=== PATIENT | male | born 1960 | race Caucasian/White ===

== ENCOUNTER 2018-10-04 07:37 | Inpatient (IN) | payer OTHER ==
[2018-10-04 08:32] VITALS: BMI 32.1
[2018-10-04] MEDS ORDERED: MIDAZOLAM HCL 2 MG/2 ML SINGLE DOSE VIAL ONE ×3 (09:20→11:06)
[2018-10-04] MEDS ORDERED: BUPIVACAINE LIPOSOME/PF (EXPAREL) 266 MG/20 ML VIAL ONE ×2 (09:20→09:26)
[2018-10-04] MEDS ORDERED: VANCOMYCIN 1,000 MG VIAL (RESTRICTED TO ID ONLY) ONE (10:45)
[2018-10-04] MEDS ORDERED: ROPIVICAINE 0.2%/MORPH PF/KETOROLAC - 51ML DISP.SYRINGE IA ONE ×3 (10:45→12:37)
[2018-10-04] MEDS ORDERED: CELECOXIB 200 MG CAPSULE PO ONE (11:04)
[2018-10-04] MEDS ORDERED: CEFAZOLIN 2 GM in DEXTROSE 5%-WATER - 50 ML IVPB ONE (11:04)
[2018-10-04] MEDS ORDERED: TRANEXAMIC ACID 1000 MG/10 ML VIAL IVPUSH ONE (11:04)
[2018-10-04] MEDS ORDERED: PROPOFOL 20 ML ONE ×2 (11:05→12:31)
[2018-10-04] MEDS ORDERED: ceFAZolin SODIUM 1 GM VIAL ONE (11:09)
[2018-10-04] MEDS ORDERED: TRANEXAMIC ACID 1000 MG/10 ML VIAL ONE ×2 (11:09→13:03)
[2018-10-04] MEDS ORDERED: VANCOMYCIN 1,000 MG VIAL (RESTRICTED TO ID ONLY) IVPB ONE (12:40)
[2018-10-04] MEDS ORDERED: ONDANSETRON 4 MG/2 ML VIAL ONE (13:07)
[2018-10-04] MEDS ORDERED: ACETAMINOPHEN 1000 MG/100 ML VIAL (NON FORMULARY) IVPB ONE ×2 (13:27→14:00)
[2018-10-04] MEDS ORDERED: ONDANSETRON 4 MG/2 ML VIAL IVPUSH PRN ×2 (13:27→13:36)
[2018-10-04] MEDS ORDERED: oxyCODONE HCL 5 MG TABLET PO PRN ×2 (13:27)
[2018-10-04] MEDS ORDERED: LACTATED RINGERS SOLUTION 1,000 ML IV SCH ×2 (13:30→13:45)
[2018-10-04] MEDS ORDERED: MAG HYDROX/AL HYDROX/SIMETH 30 ML UNIT-DOSE CUP PO PRN (13:36)
--- NOTE | 2018-10-04 13:48 | OP ---
Operative Note - Note: Operative Date: 10/04/18 Pre-Operative Diagnosis: Left knee osteoarthritis Operation: Left knee total knee arthroplasty/makoplasty Surgeon: Gamal Lee Assistant Professor Of Biochemistry: Jarret Santana Anesthesiologist/[employer]: Zulma Cuellar Anesthesia: General, Spinal Operative Report Dictated: Yes
--- NOTE | 2018-10-04 13:49 | SURG ---
Surgery [employer] Counselor Note [employer] Counselor: Jarret Santana PA-C Date of Service: 10/04/18 Diagnosis: Left knee osteoarthritis Procedure: Left total knee arthroplasty/makoplasty I was present for the entirety of the operative procedure. For further detail, please refer to operative report. Visit type - Case Type Case Type: Scheduled - Emergency Emergency Visit: No - New patient This patient is new to me today: Yes Date on this admission: 10/04/18
--- NOTE | 2018-10-04 15:02 | CONSULT ---
Consultation: REQUESTING PROVIDER: Dr. Gamal Lee CONSULT REQUEST: We have been asked to medically follow this patient post- operatively. HISTORY OF PRESENT ILLNESS: 58 year-old male with a PMH significant for HTN, HLD, pituatary microadenoma, and left knee OA s/p left total knee arthroplasty/makoplasty. REVIEW OF SYSTEMS: CONSTITUTIONAL: Absent: fever, chills, diaphoresis, generalized weakness, malaise, loss of appetite, weight change HEENT: Absent: rhinorrhea, nasal congestion, throat pain, throat swelling, difficulty swallowing, mouth swelling, ear pain, eye pain, visual changes CARDIOVASCULAR: Absent: chest pain, syncope, palpitations, irregular heart rate, lightheadedness , peripheral edema RESPIRATORY: Absent: cough, shortness of breath, dyspnea with exertion, orthopnea, wheezing, stridor, hemoptysis GASTROINTESTINAL: Absent: abdominal pain, abdominal distension, nausea, vomiting, diarrhea, constipation, melena, hematochezia GENITOURINARY: Absent: dysuria, frequency, urgency, hesitancy, hematuria, flank pain, genital pain MUSCULOSKELETAL: +post-operative pain left knee Absent: myalgia, arthralgia, joint swelling, back pain, neck pain SKIN: Absent: rash, itching, pallor HEMATOLOGIC/IMMUNOLOGIC: Absent: easy bleeding, easy bruising, lymphadenopathy, frequent infections ENDOCRINE: Absent: unexplained weight gain, unexplained weight loss, heat intolerance, cold intolerance NEUROLOGIC: Absent: headache, focal weakness or paresthesias, dizziness, unsteady gait, seizure, mental status changes, bladder or bowel incontinence PSYCHIATRIC: Absent: anxiety, depression, suicidal or homicidal ideation, hallucinations. PHYSICAL EXAMINATION Vital Signs - 24 hr 10/04/18 10/04/18 10/04/18 07:54 08:23 08:28 Temperature 99 F Pulse Rate 62 Respiratory 18 18 Rate Blood Pressure 132/80 O2 Sat by Pulse 99 Oximetry (%) GENERAL: Awake, alert, and fully oriented, in no acute distress. HEAD: Normal with no signs of trauma. EYES: Pupils equal, round and reactive to light, sclera anicteric, conjunctiva clear. No lid lag. LUNGS: Breath sounds equal, clear to auscultation bilaterally. No wheezes, and no crackles. No accessory muscle use. HEART: Regular rate and rhythm, S1 and S2 ABDOMEN: Soft, nontender, not distended UPPER EXTREMITIES: 2+ pulses, warm, well-perfused. No cyanosis. No clubbing. Cap refill <2 seconds. No peripheral edema. LOWER EXTREMITIES: LEFT: SCDs, TEDs, HAMMAD wrappings c/d/i; +flexion/+extension toes; hemovac drain sanguinous fluid NEUROLOGICAL: Cranial nerves II-XII intact. Normal speech. Active Medications Generic Name Dose Route Start Last Admin Trade Name Freq PRN Reason Stop Dose Admin Al Hydroxide/Mg Hydroxide 30 ml 10/04/18 13:36 Mylanta Oral Suspension - PO Q4H PRN DYSPEPSIA Amlodipine Besylate 10 mg 10/05/18 10:00 Norvasc - PO DAILY [facility] Aspirin 325 mg 10/04/18 22:00 Asa - PO BID [facility] Fentanyl 50 mcg 10/04/18 13:27 Sublimaze Injection - IVPUSH [id number] PRN PAIN-PACU ORDER X 4 DOSES ONLY Gabapentin 300 mg 10/04/18 22:00 Neurontin - PO BID [facility] Hydrochlorothiazide 12.5 mg 10/05/18 10:00 Hctz - PO DAILY [facility] Cefazolin Sodium/Dextrose 2 gm in 50 mls @ 100 mls/hr 10/04/18 18:00 Ancef 2 Gm Premixed Ivpb - IVPB 10/05/18 02:29 Q8H-IV JEVON Lactated Ringer's 1,000 mls @ 125 mls/hr 10/04/18 13:45 Lactated Ringers Solution IV 10/05/18 06:00 ASDIR [facility] Multivitamins/Minerals/Vitamin C 1 tab 10/05/18 10:00 Tab-A-Vit - PO DAILY [facility] Ondansetron HCl 4 mg 10/04/18 13:36 Zofran Injection IVPUSH Q6H PRN NAUSEA Oxycodone HCl 10 mg 10/04/18 13:27 Roxicodone - PO 10/05/18 13:26 Q4H PRN PAIN LEVEL 6-10 Oxycodone HCl 10 mg 10/04/18 13:27 Roxicodone - PO Q3H PRN PAIN LEVEL 6-10 Oxycodone HCl 5 mg 10/04/18 13:27 Roxicodone - PO Q3H PRN PAIN LEVEL 1-5 Oxycodone HCl 10 mg 10/04/18 22:00 Oxycontin - PO 10/07/18 13:29 BID JEVON Pantoprazole Sodium 40 mg 10/05/18 10:00 Protonix - PO DAILY JEVON Rosuvastatin Calcium 10 mg 10/04/18 22:00 Crestor - PO HS JEVON Senna/Docusate Sodium 2 tablet 10/04/18 22:00 Pericolace - PO BID JEVON Valsartan 320 mg 10/05/18 10:00 Diovan - PO DAILY JEVON ASSESSMENT/PLAN: 58 year-old male with a PMH significant for HTN, HLD, pituatary microadenoma, and left knee OA s/p left total knee arthroplasty/makoplasty. Left total knee arthroplasty/makoplasty 10/04/18 --POD #0 --pain management per surgery --perioperative antibiotics --Hemovac drain, monitor output --ASA 325mg BID --bowel regimen --incentive spirometry --physical therapy Hypertension --continue amlodipine, valsartan, HCTZ Hyperlipidemia --continue Crestor Pituatary microadenoma --stable FEN Fluids: LR@125mL/hr Electrolytes: replete as indicated Nutrition: regular diet DVT prophylaxis: ASA, SCDs, TEDs, oob, ambulation Dispo: We will continue to follow the patient. Thank you for this consultative opportunity. Visit type - Emergency Visit Emergency Visit: No - New Patient This patient is new to me today: Yes Date on this admission: 10/04/18 - Critical Care Critical Care patient: No
[2018-10-04] MEDS: oxyCODONE HCL 5 MG TABLET PO PRN ×3 (16:30→21:58)
[2018-10-04] MEDS: CEFAZOLIN 2 GM/D5W 2 GM/50 ML ML IVPB SCH (18:08)
[2018-10-04] MEDS: GABAPENTIN 300 MG CAPSULE (FP) PO SCH (21:52)
[2018-10-04] MEDS: oxyCODONE HCL 10 MG SUSTAINED ACTING TABLET PO SCH (21:52)
[2018-10-04] MEDS: SENNOSIDES/DOCUSATE COMBO (SENNA PLUS) TABLET (UD) PO SCH (21:53)
[2018-10-04] MEDS: ROSUVASTATIN CA 10 MG TABLET (FP) PO SCH (21:53)
[2018-10-04] MEDS: ASPIRIN 325 MG TABLET PO SCH (21:53)
[2018-10-05] MEDS: CEFAZOLIN 2 GM/D5W 2 GM/50 ML ML IVPB SCH (01:00)
[2018-10-05] MEDS: oxyCODONE HCL 5 MG TABLET PO PRN ×2 (04:40→08:45)
[2018-10-05] MEDS: oxyCODONE HCL 10 MG SUSTAINED ACTING TABLET PO SCH (09:00)
[2018-10-05 09:10] LABS: HEMATOCRIT 42.7 % (35.4-49); MCH 28.8 pg (25.7-33.7); MCHC 32.8 g/dl (32.0-35.9); MEAN CELL VOLUME 87.9 fl (80-96); MEAN PLT VOLUME 10.1 fl (7.5-11.1); PLATELET COUNT 197 K/MM3 (134-434); RBC 4.86 M/mm3 (4.00-5.60); RDW 12.2 % (11.9-15.9); WHITE BLOOD COUNT 10.9 K/mm3 (4.0-10.8)
[2018-10-05 09:14] LABS: ANION GAP 10 MMOL/L (8-16); BLOOD UREA NITROGEN 16 mg/dl (7-18); CHLORIDE 99 mmol/L (98-107); CO2 27 mmol/L (22-28); CREATININE 1.2 mg/dl (0.6-1.3); GLUCOSE,RANDOM 121 mg/dl (74-106); MAGNESIUM 1.9 mg/dL (1.8-2.4); POTASSIUM 3.5 mmol/L (3.5-5.1); SODIUM 136 mmol/L (136-145)
--- NOTE | 2018-10-05 09:16 | PN ---
Progress Note (short form) - Note Progress Note: no acute events some pain nad a and o x3 lle compartments soft dressing dry i removed drain nvid A/P: POD#1 s/p L TKA -pt/ot -pain control -vte proph w mech and asa -dispo: likely home w vns if remains stable tomorrow
[2018-10-05] MEDS ORDERED: PATIENT'S OWN MEDICATION (NON-FORMULARY) (Olmesartan/Hydrochlorothiazide [Benicar Hct 40-1 PO SCH (10:00)
[2018-10-05] MEDS: HYDROCHLOROTHIAZIDE 12.5 MG CAPSULE (FP) PO SCH (10:51)
[2018-10-05] MEDS: VALSARTAN 160 MG TABLET (UD) PO SCH (10:51)
[2018-10-05] MEDS: GABAPENTIN 300 MG CAPSULE (FP) PO SCH ×2 (10:51→21:43)
[2018-10-05] MEDS: ASPIRIN 325 MG TABLET PO SCH ×2 (10:51→21:43)
[2018-10-05] MEDS: SENNOSIDES/DOCUSATE COMBO (SENNA PLUS) TABLET (UD) PO SCH ×2 (10:52→21:43)
[2018-10-05] MEDS: amLODIPine BESYLATE 10 MG TABLET (FP) PO SCH (10:52)
[2018-10-05] MEDS: PANTOPRAZOLE 40 MG TABLET (FP) PO SCH (10:53)
[2018-10-05] MEDS: MULTIVITAMINS (DAILY MVI) TABLET (FP) PO SCH (10:54)
--- NOTE | 2018-10-05 14:17 | PN ---
Physical Exam: SUBJECTIVE: Patient seen and examined. Complains of pain at surgical site, worse after PT. OBJECTIVE: Vital Signs Period Temp Pulse Resp BP Sys/De Oliveira Pulse Ox Last 24 Hr 98 F-100.9 F 58-80 14-19 117-126/71-84 97-97 GENERAL: Awake, alert, and fully oriented, in no acute distress. HEAD: Normal with no signs of trauma. EYES: Pupils equal, round and reactive to light, sclera anicteric, conjunctiva clear. No lid lag. LUNGS: Breath sounds equal, clear to auscultation bilaterally. No wheezes, and no crackles. No accessory muscle use. HEART: Regular rate and rhythm, S1 and S2 ABDOMEN: Soft, nontender, not distended UPPER EXTREMITIES: 2+ pulses, warm, well-perfused. LOWER EXTREMITIES: LEFT: SCDs, TEDs, HAMMAD wrappings with scant serosanguinous strikethrough; +flexion/+extension toes NEUROLOGICAL: Cranial nerves II-XII intact. Normal speech. Laboratory Results - last 24 hr 10/05/18 10/05/18 07:20 07:20 WBC 10.9 H RBC 4.86 Hgb 14.0 Hct 42.7 MCV 87.9 MCH 28.8 MCHC 32.8 RDW 12.2 Plt Count 197 MPV 10.1 Sodium 136 Potassium 3.5 Chloride 99 Carbon Dioxide 27 Anion Gap 10 BUN 16 Creatinine 1.2 Creat Clearance w eGFR > 60 Random Glucose 121 H Calcium 9.0 Magnesium 1.9 Active Medications Generic Name Dose Route Start Last Admin Trade Name Freq PRN Reason Stop Dose Admin Al Hydroxide/Mg Hydroxide 30 ml 10/04/18 13:36 Mylanta Oral Suspension - PO Q4H PRN DYSPEPSIA Amlodipine Besylate 10 mg 10/05/18 10:00 10/05/18 10:52 Norvasc - PO 10 mg DAILY JEVON Administration Aspirin 325 mg 10/04/18 22:00 10/05/18 10:51 Asa - PO 325 mg BID JEVON Administration Fentanyl 50 mcg 10/04/18 13:27 Sublimaze Injection - IVPUSH [id number] PRN PAIN-PACU ORDER X 4 DOSES ONLY Gabapentin 300 mg 10/04/18 22:00 10/05/18 10:51 Neurontin - PO 300 mg BID JEVON Administration Hydrochlorothiazide 12.5 mg 10/05/18 10:00 10/05/18 10:51 Hctz - PO 12.5 mg DAILY JEVON Administration Multivitamins/Minerals/Vitamin C 1 tab 10/05/18 10:00 10/05/18 10:54 Tab-A-Vit - PO 1 tab DAILY JEVON Administration Ondansetron HCl 4 mg 10/04/18 13:36 Zofran Injection IVPUSH Q6H PRN NAUSEA Oxycodone HCl 10 mg 10/04/18 22:00 10/05/18 09:00 Oxycontin - PO 10/07/18 13:29 10 mg BID JEVON Administration Oxycodone/Acetaminophen 2 combo 10/05/18 14:02 Percocet 5/325 - PO 10/08/18 14:01 Q4H PRN PAIN LEVEL 7 - 10 Pantoprazole Sodium 40 mg 10/05/18 10:00 10/05/18 10:53 Protonix - PO 40 mg DAILY JEVON Administration Rosuvastatin Calcium 10 mg 10/04/18 22:00 10/04/18 21:53 Crestor - PO 10 mg HS JEVON Administration Senna/Docusate Sodium 2 tablet 10/04/18 22:00 10/05/18 10:52 Pericolace - PO 2 tablet BID JEVON Administration Valsartan 320 mg 10/05/18 10:00 10/05/18 10:51 Diovan - PO 320 mg DAILY JEVON Administration ASSESSMENT/PLAN 58 year-old male with a PMH significant for HTN, HLD, pituatary microadenoma, and left knee OA s/p left total knee arthroplasty/makoplasty. Left total knee arthroplasty/makoplasty 10/04/18 --POD #1 --complaining of pain, switched to percocet 2tabs q6h --perioperative antibiotics complete --Hemovac drain d/c'd today by surgery --continue 202ASA 325mg BID --bowel regimen --incentive spirometry --physical therapy Hypertension --continue amlodipine, valsartan, HCTZ Hyperlipidemia --continue Crestor Pituatary microadenoma --stable FEN Fluids: PO intake adequate Electrolytes: replete as indicated Nutrition: regular diet DVT prophylaxis: ASA, SCDs, TEDs, oob, ambulation Dispo: We will continue to follow the patient. Thank you for this consultative opportunity. Visit type - Emergency Visit Emergency Visit: Yes ED Registration Date: 10/04/18 Care time: The patient presented to the Emergency Department on the above date and was hospitalized for further evaluation of their emergent condition. - New Patient This patient is new to me today: No - Critical Care Critical Care patient: No
--- NOTE | 2018-10-05 14:59 | OP ---
DATE OF OPERATION: 10/04/2018 PREOPERATIVE DIAGNOSIS: Left knee osteoarthritis. POSTOPERATIVE DIAGNOSIS: Left knee osteoarthritis. OPERATION PERFORMED: Left total knee arthroplasty. SURGEON: Gamal Lee M.D. RATE MANAGER: Jonas Fernandez TYPE OF ANESTHESIA: Spinal block. DISPOSITION: Patient returned to recovery room in stable condition. COMPONENTS USED: [place] [employer] Press-Fit size 5 CR femur, size 5 tibia, 9-mm ultracongruent polyethylene and 33-mm cemented patella. DRAINS PLACED: 1 Hemovac. ESTIMATED BLOOD LOSS: Less than 50 mL. TOTAL TOURNIQUET TIME: 95 minutes. INDICATION FOR PROCEDURE: The patient failed nonoperative treatment for left knee arthritis and is indicated for left total knee replacement. Preoperative in the waiting area as well as off site, I had a long discussion with the patient regarding the planning, expected outcome, and the risks, benefits, and alternatives of surgery. The risks include but are not limited to infection, which may require future surgery and removal of implants, bleeding which may require transfusion, damage to nerves, arteries, veins, tendons, muscles, and other adjacent structures including possible numbness, weakness, decreased function, and/or possible need for surgical repair. Also discussed the possibility of intraoperative and postoperative fractures, implant loosening, stiffness, need for extensive therapy, need for revision for a variety of reasons. We also discussed blood clots and other possible medical complications. This was discussed at length and consent was obtained. PROCEDURE IN DETAIL: The patient was taken to the operating room and placed on the operating table in the supine position. Following induction of spinal anesthesia, a well-padded tourniquet was placed on the left thigh, and the left lower extremity was prepped and draped in the sterile fashion. A timeout was performed and confirmed the correct site, verified that this site was marked, and confirmed the correct patient and procedure to be performed, as well this patient received the appropriate preoperative antibiotics and tranexamic acid and had a compression device on the nonoperative leg. The tourniquet was elevated, followed by a midline incision and a medial parapatellar arthrotomy. Checkpoints placed in the tibia and femur, and arrays placed in the tibia and femur through stab incisions. Patient registered and knee balanced, cuts adjusted in order to obtain appropriate balance in flexion and extension while protecting the surrounding soft tissues, all our bony cuts were placed, trials were then placed after we took out the cruciate ligaments, posterior osteophytes, and menisci. With the trials in place, we had full extension. We were well balanced with regard to varus and valgus stress, had appropriate alignment, had full flexion, and the patella tracked centrally. The patella was then measured at 24 mm, and 9.25 mm was taken off using a guide. We then reconstructed with a 33-mm button and performed a lateral double cut with the patella trial in place. The patella tracked centrally. There was good stability, soft tissue tension, and range of motion. Trials were then removed. After a 3-minute soak with a diluted Betadine solution, the wound was copiously irrigated. We did a posterior capsular injection at this time. The tibia and the femur were Press-Fit and then the final polyethylene was inserted and seen to flush. The patella was cemented and all excess cement was removed. When all the cement was hardened, the knee was copiously irrigated, and the remainder of the injection was placed. When the final implants in place, there was good stability, soft tissue tension, range of motion of the patella tracked centrally. The arrays and checkpoints were then removed, and deep drain was placed. The wound was copiously irrigated. The arthrotomy was closed with 0 Vicryl and 0 V-Loc, 2-0 Vicryl and ella were placed to the skin. The knee was wrapped in a dry, sterile compressive dressing. The tourniquet was released, compartments were soft at the end of the procedure, pulses were palpated, and patient was returned to recovery in stable condition. Will mobilize with weightbearing as tolerated. WOUND CLASSIFICATION: Clean. SPECIMENS: Bone. COMPLICATIONS: None known. Naveed [id number]
[2018-10-05] MEDS: ROSUVASTATIN CA 10 MG TABLET (FP) PO SCH (21:43)
[2018-10-05 22:09] VITALS: BP 131/67
[2018-10-06 06:18] VITALS: PULSE 77; TEMP 98.6
--- NOTE | 2018-10-06 09:00 | PN ---
Progress Note (short form) - Note Progress Note: no acute events some pain nad a and o x3 lle compartments soft dressing dry, except drain site, nothing active nvid A/P: POD#2 s/p L TKA -pt/ot -pain control, i discussed with him post op pain protocol and told him to call me before picking up his percocet that his pain md sent to his pharmacy as he should not be taking percocet along with tylenol -vte proph w asa -dispo: likely home w vns today, i reviewed the discharge instructions with him , meds sent to pharmacy
[2018-10-06 09:11] LABS: HEMATOCRIT 43.3 % (35.4-49); HEMOGLOBIN 14.1 GM/dl (11.7-16.9); MCH 28.6 pg (25.7-33.7); MCHC 32.5 g/dl (32.0-35.9); MEAN CELL VOLUME 87.9 fl (80-96); MEAN PLT VOLUME 10.9 fl (7.5-11.1); PLATELET COUNT 181 K/MM3 (134-434); RBC 4.93 M/mm3 (4.00-5.60); RDW 12.2 % (11.9-15.9); WHITE BLOOD COUNT 12.5 K/mm3 (4.0-10.8)
[2018-10-06] MEDS: VALSARTAN 160 MG TABLET (UD) PO SCH (09:14)
[2018-10-06] MEDS: ASPIRIN 325 MG TABLET PO SCH (09:14)
[2018-10-06] MEDS: PANTOPRAZOLE 40 MG TABLET (FP) PO SCH (09:15)
[2018-10-06] MEDS: amLODIPine BESYLATE 10 MG TABLET (FP) PO SCH (09:15)
[2018-10-06] MEDS: GABAPENTIN 300 MG CAPSULE (FP) PO SCH (09:15)
[2018-10-06] MEDS: HYDROCHLOROTHIAZIDE 12.5 MG CAPSULE (FP) PO SCH (09:15)
[2018-10-06] MEDS: MULTIVITAMINS (DAILY MVI) TABLET (FP) PO SCH (09:15)
[2018-10-06] MEDS: SENNOSIDES/DOCUSATE COMBO (SENNA PLUS) TABLET (UD) PO SCH (09:15)
--- NOTE | 2018-10-06 09:41 | PN ---
Physical Exam: SUBJECTIVE: Patient seen and examined,reports left knee pain well controlled with pain meds,no new complains. OBJECTIVE: Vital Signs Period Temp Pulse Resp BP Sys/De Oliveira Pulse Ox Last 24 Hr 98.6 F-100.2 F 76-82 18-20 124-134/67-73 95-97 GENERAL: The patient is awake, alert, and fully oriented, in no acute distress. HEAD: Normal with no signs of trauma. EYES: PERRL, extraocular movements intact, sclera anicteric, conjunctiva clear. No ptosis. ENT: Ears normal, nares patent, oropharynx clear without exudates, moist mucous membranes. NECK: Trachea midline, full range of motion, supple. LUNGS: Breath sounds equal, clear to auscultation bilaterally, no wheezes, no crackles, no accessory muscle use. HEART: Regular rate and rhythm, S1, S2 without murmur, rub or gallop. ABDOMEN: Soft, nontender, nondistended, normoactive bowel sounds, no guarding, no rebound, no hepatosplenomegaly, no masses. EXTREMITIES: 2+ pulses, warm, well-perfused,Left knee dsg dry and intact NEUROLOGICAL: Cranial nerves II through XII grossly intact. Normal speech, gait not observed. PSYCH: Normal mood, normal affect. SKIN: Warm, dry, normal turgor, no rashes or lesions noted Active Medications Generic Name Dose Route Start Last Admin Trade Name Freq PRN Reason Stop Dose Admin Al Hydroxide/Mg Hydroxide 30 ml 10/04/18 13:36 Mylanta Oral Suspension - PO Q4H PRN DYSPEPSIA Amlodipine Besylate 10 mg 10/05/18 10:00 10/06/18 09:15 Norvasc - PO 10 mg DAILY EJVON Administration Aspirin 325 mg 10/04/18 22:00 10/06/18 09:14 Asa - PO 325 mg BID JEVON Administration Fentanyl 50 mcg 10/04/18 13:27 Sublimaze Injection - IVPUSH [id number] PRN PAIN-PACU ORDER X 4 DOSES ONLY Gabapentin 300 mg 10/04/18 22:00 10/06/18 09:15 Neurontin - PO 300 mg BID JEVON Administration Hydrochlorothiazide 12.5 mg 10/05/18 10:00 10/06/18 09:15 Hctz - PO 12.5 mg DAILY JEVON Administration Multivitamins/Minerals/Vitamin C 1 tab 10/05/18 10:00 10/06/18 09:15 Tab-A-Vit - PO 1 tab DAILY JEVON Administration Ondansetron HCl 4 mg 10/04/18 13:36 Zofran Injection IVPUSH Q6H PRN NAUSEA Oxycodone/Acetaminophen 2 combo 10/05/18 17:05 10/06/18 03:17 Percocet 5/325 - PO 10/08/18 14:01 2 combo Q6H PRN Administration PAIN LEVEL 7 - 10 Pantoprazole Sodium 40 mg 10/05/18 10:00 10/06/18 09:15 Protonix - PO 40 mg DAILY JEVON Administration Rosuvastatin Calcium 10 mg 10/04/18 22:00 10/05/18 21:43 Crestor - PO 10 mg HS JEVON Administration Senna/Docusate Sodium 2 tablet 10/04/18 22:00 10/06/18 09:15 Pericolace - PO 2 tablet BID JEVON Administration Valsartan 320 mg 10/05/18 10:00 10/06/18 09:14 Diovan - PO 320 mg DAILY JEVON Administration Laboratory Tests 10/05/18 10/05/18 10/06/18 07:20 07:20 06:30 WBC 10.9 H 12.5 H RBC 4.86 4.93 Hgb 14.0 14.1 Hct 42.7 43.3 MCV 87.9 87.9 MCH 28.8 28.6 MCHC 32.8 32.5 RDW 12.2 12.2 Plt Count 197 181 MPV 10.1 10.9 Sodium 136 Potassium 3.5 Chloride 99 Carbon Dioxide 27 Anion Gap 10 BUN 16 Creatinine 1.2 Creat Clearance w eGFR > 60 Random Glucose 121 H Calcium 9.0 Magnesium 1.9 Assessment/ Plan 58 year-old male with a PMH significant for HTN, HLD, pituatary microadenoma, and left knee OA s/p left total knee arthroplasty/makoplasty. *Left total knee arthroplasty/makoplasty 10/04/18 -POD #2 - Sx following - pain control -Bowel regimen - PT done -encouraged to use incentive spirometry - afebrile with mild leukocytosis *Hypertension- BP stable -will continue amlodipine, valsartan, HCTZ *Hyperlipidemia -will continue Crestor *Pituatary microadenoma-stable - out pt f/u *FEN Fluids: PO intake adequate Electrolytes: replete as indicated Nutrition: regular diet DVT prophylaxis: ASA, SCDs, TEDs, oob, ambulation Dispo:DC home today. Thank you for this consultative opportunity.P Visit type - Emergency Visit Emergency Visit: Yes ED Registration Date: 10/04/18 Care time: The patient presented to the Emergency Department on the above date and was hospitalized for further evaluation of their emergent condition. - New Patient This patient is new to me today: Yes Date on this admission: 10/06/18 - Critical Care Critical Care patient: No
--- NOTE | 2018-10-09 16:05 | PATH ---
Surgical Pathology Report Patient Name: MARY GODINEZ Med. Rec. #: [id number] /Age/Gender: 1960 (Age: 58) / M Account: [id number] Location: [facility] Taken: 10/04/2018 Received: 10/04/2018 Reported: 10/09/2018 Physicians: Gamal Lee M.D. Specimen(s) Received LEFT KNEE BONES Clinical History Left knee osteoarthritis Final Diagnosis KNEE BONES, LEFT, TOTAL KNEE REPLACEMENT: DEGENERATIVE JOINT DISEASE. Electronically Signed Lucretia Jiang M.D. Gross Description Received in formalin labeled "left knee bones," is a 12.5 x 9.5 x 2.0 cm aggregate of multiple portions of bone and soft tissue, consistent with knee bones. No areas of eburnation are identified. The articular surfaces are malave-yellow and focally granular. The underlying trabecular bone is yellow and hard. Time Clock Mechanic sections are submitted in one cassette, following decalcification. 10/08/2018 [facility]10/08/2018
== END 2018-10-06 11:15 | disposition home health service (06) | DRG 302 ==
LOC: FM/S 07:37
PROVIDERS: ADMIT Orthopaedic Surgery; ATTEND Orthopaedic Surgery
PROC: 8E0Y0CZ Robotic Assisted Procedure of Lower Extremity, Open Approach (ICD-10-PCS; 2018-10-04)
PROC: 0SRD0J9 Replacement of Left Knee Joint with Synthetic Substitute, Cemented, Open Approach (ICD-10-PCS; principal; 2018-10-04 11:21)
DX: M17.12 Unilateral primary osteoarthritis, left knee (principal); I10 Essential (primary) hypertension; E78.5 Hyperlipidemia, unspecified; D35.2 Benign neoplasm of pituitary gland
CPT/HCPCS: 36415; 73560-TC-LT-FY; 80048; 83735; 85027; 88304-TC; 88311-TC; 94760; 97116-GP; 97161-GP; J0131